=== PATIENT | male | born 1970 | race Caucasian/White ===

== ENCOUNTER 2023-11-18 13:51 | Outpatient (CLI) | payer OTHER ==
--- NOTE | 2023-11-18 16:37 | SLEEP CARE CONSULTATION ---
Information from patient questionnaire entered by Chris Stout. I have reviewed and concur with the information entered by Chris Stout. This document represents the service I personally performed and the decisions made by me, Alistair Martines MD, [facility]. History of Present Illness Service Date and Time: 11/18/2023 1351 Reason for Visit: New patient Chief Complaint: reports: Other (UPDATE SUPPLIES) Date of Onset: 2002 Usual bedtime: 9-10PM Time it takes to fall asleep: 15MINS Snores at night: Yes Observed to quit breathing while asleep: Yes Sleeps alone due to snoring: No Number of times waking at night: 2-3 Reasons for waking at night: reports: Choking, Gasping for air, Bathroom, Other (UNKNOWN) Toss, Turn, or Twitch while sleeping: No Recalls having dreams: Yes Usually gets out of bed at: 0515 Feels refreshed in the morning: Yes Morning headache: No Sleepy or fatigued during the day: No Ever fallen asleep while driving: No Takes day naps: No Dreams during day naps: No Prior sleep studies: Yes Additional HPI information: I had the pleasure of seeing Mr. Barone today regarding obstructive sleep apnea- hypopnea. As you know, he is a 53-year-old gentleman who was diagnosed with the sleep-disordered breathing in [place], [place] in 2019. The AHI was 12.7 and delmer oxygen saturation, 77%. He was started on a CPAP. He also had an upper airway surgery almost 20 years ago that did not work. He was prescribed a CPAP device set at 12 cmH2O. He uses it every night and all night. The compliance data show usage in 63 out of the past 90 nights, averaging 6.7 hours a night. The nights he did not use the ResMed AirSense 10, he used the AirSense Mini. The residual AHI is 3.8 and average air leak is 10.5 L/minute. He wears a ResMed F20 full face mask. He gets his supplies from a durable medical supplier in [place]. He finds the treatment very beneficial. - Parasomnia Symptoms Ever been unable to move upon waking from sleep: No Walks in sleep: No Talks in sleep: No Ever acted out dreams in sleep: No Ever felt weak in the knees when startled or emotional: No Bothered by creepy, crawly, restless sensations in legs: No Problems with memory or concentration: No Subjective Initial [place] Sleepiness Scale score: 6 (11/18/23) Social History The patient's occupation is a AM. Patient is and lives in [place]. Have you smoked in the past 12 months: No Years of smokin Quit date: 10/2022 Alcohol use: Yes Alcohol amount and frequency: 2-4BEERS WEEKENDS Caffeine use: Yes Caffeine amount and frequency: MORNING AND EVENING Family History Family history of sleep disordered breathing: Yes Family Hx Sleep Apnea: Mother: Sleep apnea - Treated Allergies and Home Medications Known drug allergies: No Drug allergies reviewed: Yes Home medication list reviewed: Yes Review of Systems Cardiovascular: denies: high blood pressure, palpitations, chest pain, irregular heart rate or pulse, leg or foot swelling, have to sleep sitting up, other Respiratory: denies: shortness of breath, wheeze, sputum production, chronic cough, other Gastrointestinal: denies: heartburn, difficulty swallowing, nausea, vomitting, diarrhea, abdominal pain, other Urinary: denies: incontinence, frequency, urgency, impotence, other Neurological: denies: headaches, seizure, head trauma, disorientation, speech dysfunction, gait or balance problems, fainting or unconsciousness, other Psychiatric: denies: Attention Deficit Hyperactivity, anxiety, depression, mood disorder, claustrophobia, other Ear/Nose/Throat: reports: nasal congestion, sinus problems Endocrine: denies: thyroid disease, history of goiter, sluggishness, too hot or cold, excessive thirst, increased appetite, increased urination, unexplained w eakness, other Musculoskeletal: denies: joint pain, neck pain, back pain, joint swelling, muscle pain or cramping, mobility problems, other Immunologic: denies: sneezing, rash, itching, allergies to food or environment, other Physical Exam Vital signs obtained and entered by: CHRIS Webb MA Blood Pressure: 158/85 (RIGHT ARM) Cuff size: regular Heart Rate: 86 O2 Saturation: 97 Height: 5 ft 8 in Weight: 188 lb Body Mass Index: 28.5 BMI Classification: Overweight Neck circumference: 16.5 Mood/affect: normal HEENT: No craniofacial malformation Nostrils: patent to airflow Turbinates: normal Septum: midline Mouth and throat: narrow oropharynx Soft palate: long Hard palate: normal Uvula: normal Uvula visualization: 50% Mallampati Class II Tongue: normal in size Tonsils: small Chin and jaw: normal size and position Neck: normal w/o lymphadenopathy or thyromegaly Heart: regular rate and rhythm Lungs: clear bilaterally Extremities: no edema or clubbing Neurologic: intact Impression and Plan IMPRESSION: 1. Obstructive Sleep Apnea-Hypopnea Syndrome, mild, as previously diagnosed in [place]. He patient has good treatment compliance using both the ResMed AirSense 10 and AirSense Mini. The current pressure setting appears effective and comfortable. The patient now needs new supplies. Plan: 1. Prescription made for CPAP supplies through [employer] [employer]. 2. Try to lose weight. 3. Return for a follow up in a year or earlier if there is any problem. Prescriptions: Device supplies Follow up with Sleep Care in: 1 year Visit Type: In Office Time Spent with Patient (minutes): 15 Provider Statement: I spent 100% of the Face to Face Visit with the patient with greater than 50% spent counseling the patient and coordination of care.
[2023-11-18 16:44] VITALS: BP 158/85; O2SAT 97
== END 2023-11-18 13:52 | disposition home or self-care (01) ==
LOC: SC 13:51
PROVIDERS: ATTEND Internal Medicine Pulmonary Disease
DX: G47.33 Obstructive sleep apnea (adult) (pediatric) (principal); E66.3 Overweight; Z68.28 Body mass index [BMI] 28.0-28.9, adult
CPT/HCPCS: 99202; 99212

== ENCOUNTER 2024-07-23 11:42 | Day surgery (SDC) | payer OTHER ==
[2024-07-23] MEDS ORDERED: ceFAZolin 2 GM VIAL ONE (11:59)
[2024-07-23] MEDS: LACTATED RINGERS 1,000 ML IV ONE ×2 (12:05→16:53)
[2024-07-23] MEDS ORDERED: MIDAZOLAM 2 MG/2 ML VIAL ONE (13:50)
[2024-07-23] MEDS ORDERED: PROPOFOL 200 MG/20 ML VIAL IVP ONE (13:51)
[2024-07-23] MEDS ORDERED: fentaNYL 100 MCG/2 ML VIAL ONE (13:51)
[2024-07-23] MEDS ORDERED: LIDOCAINE-PF 2% 10 ML AMP SUBQ ONE (13:51)
[2024-07-23] MEDS ORDERED: ROCURONIUM 50 MG/5 ML VIAL ONE ×2 (13:53→15:06)
[2024-07-23] MEDS ORDERED: METOCLOPRAMIDE 10 MG/2 ML VIAL IVP PRN (14:12)
[2024-07-23] MEDS ORDERED: ATROPINE ABBOJECT 1 MG/10 ML SYRINGE IVP PRN (14:12)
[2024-07-23] MEDS ORDERED: fentaNYL 100 MCG/2 ML VIAL IVP PRN (14:12)
[2024-07-23] MEDS ORDERED: ePHEDrine 50 MG/ML VIAL IVP PRN (14:12)
[2024-07-23] MEDS ORDERED: MORPHINE 2 MG/ML CARPUJECT IVP PRN (14:12)
[2024-07-23] MEDS ORDERED: NALOXONE 0.4 MG/ML VIAL IVP PRN (14:12)
[2024-07-23] MEDS ORDERED: HYDROmorphone 0.5 MG/0.5 ML SYRINGE IVP PRN ×2 (14:12→16:37)
--- NOTE | 2024-07-23 14:13 | ANESTHESIA ---
Pre-Anesthesia VS, & Labs - Diagnosis ventral hernia - Procedure laparoscopic ventral hernia repair Vital Signs: Temp Pulse Resp BP Pulse Ox O2 Flow Rate 36.3 C L 67 16 130/79 96 07/23/24 12:14 07/23/24 12:14 07/23/24 12:14 07/23/24 12:14 07/23/24 12:14 Height: 5 ft 8 in Weight (kg): 92.8 kg Body Mass Index: 31.1 BMI Classification: Obese - NPO >8 hours - Lab Results Lab results reviewed: Yes Home Medications and Allergies Home Medications: Ambulatory Orders Meloxicam [Mobic] 15 mg PO DAILY 07/17/24 Meloxicam [Mobic] 15 mg PO DAILY 07/17/24 Allergies/Adverse Reactions: Allergies Allergy/AdvReac Type Severity Reaction Status Date / Time No Known Drug Allergies Allergy Verified 11/18/23 14:02 Anes History & Medical History - Anesthetic History Anesthesia Complications: reports: No previous complications Family history of Anesthesia Complications: Denies Family history of Malignant Hyperthermia: Denies - Medical History Cardiovascular: reports: None Pulmonary: reports: Sleep apnea, CPAP use Gastrointestinal: reports: None Urinary: reports: None Musculoskeletal: reports: Osteoarthritis, Chronic back pain Endocrine/Autoimmune: reports: None Skin: reports: Psoriasis Smoking Status: Former smoker Psychosocial: reports: Alcohol History of Cancer?: No - Surgical History Orthopedic: reports: Other (toe surgery) Exam General: Alert, Oriented x3, Cooperative Dental: Other (permanant bridge x 30 years) Mouth Openin Fingerbreadth Neck Mobility: Normal Mallampati classification: II Thyromental Distance: 4-6 cm Respiratory: Lungs clear, Normal breath sounds, No respiratory distress Cardiovascular: Regular rate Neurological: Normal speech Mental/Cognitive Status: Alert/Oriented X3, Normal for patient Cognitive Status: Within normal limits Plan Anesthesia Type: General Consent for Procedure(s) Verified and Reviewed: Yes Code Status: Attempt Resuscitation ASA classification: 2-Mild systemic disease Is this case an emergency?: No
[2024-07-23] MEDS ORDERED: BUPIVACAINE 0.25% PF 30 ML VIAL ONE (14:16)
--- NOTE | 2024-07-23 14:20 | HISTORY & PHYSICAL EXAMINATION ---
Chief Complaint - Chief Complaint Chief Complaint: here for hernia surgery History of Present Illness - History Obtained From Records Reviewed: yes History obtained from: pt Exam Limitations: none - History of Present Illness HPI Comment/Other: progressive ventral hernia in size and discomfort History - Past Medical History Cardiovascular: reports: None Respiratory: reports: Sleep apnea, CPAP use Endocrine/Autoimmune: reports: None GI: reports: None : reports: None HEENT: reports: Chronic vision loss Psych: reports: None Musculoskeletal: reports: Osteoarthritis, Chronic back pain Derm: reports: Psoriasis MRSA Hx?: No - Past Surgical History Ortho: reports: Other (toe surgery) Meds/Allgy - Home Medications Home Medications: Ambulatory Orders Medication Instructions Recorded Confirmed Meloxicam [Mobic] 15 mg PO DAILY 07/17/24 07/23/24 - Allergies Allergies/Adverse Reactions: Allergies Allergy/AdvReac Type Severity Reaction Status Date / Time No Known Drug Allergies Allergy Verified 11/18/23 14:02 Review of Systems - Other Findings Other Findings: 10 pt ros as above otherwise unremarkable Exam - Vital Signs Vital Signs: Vital Signs x48h Temp Pulse Resp BP Pulse Ox 07/23/24 12:14 36.3 C L 67 16 130/79 96 - Physical Exam General Appearance: positive: No acute distress, Alert Eyes Bilateral: positive: PERRL, EOMI ENT: positive: Pharynx nml Neck: positive: No JVD, Trachea midline Respiratory: positive: No respiratory distress Cardiovascular: positive: Regular rate & rhythm Abdomen: positive: Other (4 to 5 cm ventral hernia and very large diastasis) Neurologic/Psychiatric: positive: Oriented x3 Conclusion/Plan - Problem List (1) Ventral hernia Conclusion/Plan: plan laparoscopic repair. parq held and consent obtained - Lab Results Lab results reviewed: Yes
[2024-07-23] MEDS ORDERED: ONDANSETRON 4 MG/2 ML VIAL ONE ×2 (14:50→16:50)
[2024-07-23] MEDS ORDERED: DEXAMETHASONE 4 MG/ML VIAL ONE (14:50)
[2024-07-23] MEDS ORDERED: LACTATED RINGERS 1,000 ML IV SCH (15:00)
[2024-07-23] MEDS ORDERED: HYDROmorphone 1 MG/ML CARPUJECT ONE (15:15)
[2024-07-23] MEDS: BUPIVACAINE 0.25% PF 30 ML VIAL SUBQ ONE (15:28)
[2024-07-23] MEDS ORDERED: SUGAMMADEX 200 MG/2 ML VIAL IVP ONE (15:33)
[2024-07-23] MEDS ORDERED: KETOROLAC 30 MG/ML VIAL ONE (16:04)
[2024-07-23] MEDS: LACTATED RINGERS 200 ML IV ONE ×2 (16:33→16:52)
[2024-07-23] MEDS ORDERED: ONDANSETRON 4 MG/2 ML VIAL IVP PRN (16:37)
[2024-07-23] MEDS ORDERED: HYDROcod/ACETAM 5/325 MG TABLET PO PRN (16:37)
[2024-07-23] MEDS: ONDANSETRON 4 MG/2 ML VIAL IVP PRN (16:51)
--- NOTE | 2024-07-23 16:54 | OPERATIVE REPORT ---
Operative Report - General Procedure Date: 07/23/24 Planned Procedure: lap ventral hernia Pre-Op Diagnosis: 4 x 5 cm ventral hernia and large diastasis Procedure Performed: lap ventral hernia Post Op Diagnosis: same - Procedure Note Primary Surgeon: nelia barber Anesthesia Technique: General ET tube, Local Pathology: none Estimated Blood Loss (mL): 2 Drain/Tube Type: Other (none) Indications: painful hernia bulge Findings: 6 x 8 in ventralight mesh Complications: none - Other Other Information/Narrative: The patient was prepped identified brought to the operating room and placed in supine position. General endotracheal anesthesia was induced. Sequential compression devices were placed. He was prepped and draped in a sterile fashion and given preoperative antibiotics. Local anesthetic was given to incision areas. A left upper quadrant lateral 2 cm incision was made. Dissection proceeded down to the fascia. Fascia was lifted upwards on the abdomen entered with a Veress needle. CO2 was insufflated to a pressure of 15. An 11 mm Visiport trocar with 30 degree scope was placed. There was no evidence of injury from Veress needle or trocar placement. Under direct vision 5 mm trocars were placed in the left lower quadrant to the right lower quadrant and the right upper quadrant. The falciform ligament in continuity with the infra umbilical adipose tissue was taken down. Incarcerated preperitoneal adipose tissue was removed from the ventral hernia defect. He had significant weakness measuring approximately 4 x 5 cm and a central hole approximately 3 cm. 6 x 8 inch ventral light mesh was placed intra-abdominal and secured to the abdominal wall with 6 interrupted 0 Ethibond sutures. The mesh lay in good position. There was further secured with approximately 40 CapSure tacks there are no apparent complications. Fascia at the larger trocar site was closed with a [id number] 0 Vicryl. Trocars were removed under direct vision and CO2 evacuated. Skin was closed with buried interrupted or running 4-0 Monocryl subcuticular suture. Dressings were applied. Tolerated procedure well was awakened and brought to recovery in good condition.
[2024-07-23 17:14] VITALS: BP 134/88; O2SAT 94
--- NOTE | 2024-07-23 19:37 | ANESTHESIA POST OP EVALUATION ---
Anesthesia Post Eval - Post Anesthesia Eval Vitals: Last Vital Signs Temp 36.7 C 07/23/24 17:11 Pulse 76 07/23/24 17:11 Resp 17 07/23/24 17:11 BP 134/88 H 07/23/24 17:11 Pulse Ox 94 07/23/24 17:11 O2 Flow Rate CV Function Including HR & BP: Stable Pain Control: Satisfactory Nausea & Vomiting: Negative Mental Status: Baseline Respiratory Status: Airway Patent Hydration Status: Satisfactory Anesthesia Complications: None
== END 2024-07-23 18:50 | disposition home or self-care (01) ==
LOC: SDS 11:42 → ICU 16:48 → SDS 18:50
PROVIDERS: ATTEND Surgery
DX: K43.6 Other and unspecified ventral hernia with obstruction, without gangrene (principal); E66.9 Obesity, unspecified; Z68.31 Body mass index [BMI] 31.0-31.9, adult; Z87.891 Personal history of nicotine dependence; G47.30 Sleep apnea, unspecified
CPT/HCPCS: 49594; J1170; J7120